=== PATIENT | female | born 1995 | race Caucasian/White ===

== ENCOUNTER 2017-06-07 22:14 | Emergency (ER) | payer SELFPAY ==
[~2017-06-07] VITALS: Ht 160 cm; Wt 56.2 kg
[2017-06-07 22:39] VITALS: Ht 160 cm; Wt 56.2 kg
[2017-06-07 23:57] VITALS: BP 131/92
== END 2017-06-07 23:57 | disposition home or self-care (01) ==
LOC: ED 22:14
DX: H66.91 Otitis media, unspecified, right ear (principal); H72.91 Unspecified perforation of tympanic membrane, right ear
CPT/HCPCS: J0696; Q0162

== ENCOUNTER 2018-10-18 01:07 | Emergency (ER) | payer MEDICAID ==
[~2018-10-18] VITALS: Ht 160 cm; Wt 51.7 kg
[2018-10-18 01:15] VITALS: BP 141/92; Ht 160 cm; Wt 51.7 kg
[2018-10-18 02:01] LABS: BASOPHIL % 0.2 % (0-2); PLATELET COUNT 282 x10^3mcL (130-400); RED CELL DISTRIBUTION WIDTH 12.2 % (11.5-14.5)
[2018-10-18 02:05] LABS: UA SPECIFIC GRAVITY >=1.030 (1.005-1.035); microscopic required? YES
[2018-10-18 02:06] LABS: urine erythrocyte 3+ (NEGATIVE)
[2018-10-18 02:09] LABS: CALCIUM 9.5 mg/dL (8.5-10.1); CARBON DIOXIDE 24.6 mmol/L (21-32); CHLORIDE SERUM 103 mmol/L (98-107); CREATININE SERUM 0.7 mg/dL (0.6-1.0); GFR1 > 60 mL/min; GLUCOSE SERUM 106 mg/dL (74-106); POTASSIUM SERUM 3.3 mmol/L (3.5-5.1); SODIUM SERUM 138 mmol/L (136-145)
[2018-10-18 02:14] LABS: ALBUMIN 4.5 g/dL (3.4-5.0); ALKALINE PHOSPHATASE 64 U/L (46-116); ALT/SGPT 19 U/L (14-59); AST/SGOT 18 U/L (15-37); BILIRUBIN TOTAL 0.6 mg/dL (0.20-1.00)
[2018-10-18 02:15] LABS: TOTAL PROTEIN, SERUM 8.4 g/dL (6.4-8.2)
== END 2018-10-18 03:37 | disposition home or self-care (01) ==
LOC: ED 01:07
PROVIDERS: Emergency Medicine
DX: E86.0 Dehydration (principal); E87.6 Hypokalemia; R19.7 Diarrhea, unspecified; R42 Dizziness and giddiness
CPT/HCPCS: J7030

== ENCOUNTER 2018-10-24 16:41 | Emergency (ER) | payer MEDICAID ==
[~2018-10-24] VITALS: Ht 160 cm; Wt 50.3 kg
[2018-10-24 16:57] VITALS: BP 130/66; Ht 160 cm; Wt 50.3 kg
== END 2018-10-24 18:25 | disposition home or self-care (01) ==
LOC: ED 16:41
DX: N39.0 Urinary tract infection, site not specified (principal); R42 Dizziness and giddiness; R11.0 Nausea

== ENCOUNTER 2018-12-21 22:34 | Emergency (ER) | payer SELFPAY ==
[~2018-12-21] VITALS: Ht 160 cm; Wt 49.0 kg
[2018-12-21 22:38] VITALS: Ht 160 cm; Wt 49.0 kg
[2018-12-21 23:18] LABS: BASOPHIL % 0.4 % (0-2); PLATELET COUNT 219 x10^3mcL (130-400); RED CELL DISTRIBUTION WIDTH 13.2 % (11.5-14.5)
[2018-12-21 23:31] LABS: CARBON DIOXIDE 25.3 mmol/L (21-32); CHLORIDE SERUM 105 mmol/L (98-107); CREATININE SERUM 0.7 mg/dL (0.6-1.0); GFR1 > 60 mL/min; GLUCOSE SERUM 85 mg/dL (74-106); POTASSIUM SERUM 3.8 mmol/L (3.5-5.1); SODIUM SERUM 143 mmol/L (136-145)
[2018-12-22 00:01] VITALS: BP 111/70
== END 2018-12-22 00:01 | disposition home or self-care (01) ==
LOC: ED 22:34
PROVIDERS: Emergency Medicine
DX: F41.9 Anxiety disorder, unspecified (principal); N39.0 Urinary tract infection, site not specified
CPT/HCPCS: 36415